=== PATIENT | female | born 2000 | race Hispanic/Latino ===

== ENCOUNTER 2020-12-17 11:48 | Outpatient (CLI) | payer BC | END 2020-12-17 11:49 | disposition home or self-care (01) | LOC: BICULT 11:48 | PROVIDERS: ATTEND Family Medicine | DX: E01.0 Iodine-deficiency related diffuse (endemic) goiter (principal) | CPT/HCPCS: 76536 ==

== ENCOUNTER 2022-12-22 12:21 | Outpatient (CLI) | payer BC | END 2022-12-22 12:22 | disposition home or self-care (01) | LOC: ULT 12:21 | DX: E03.9 Hypothyroidism, unspecified (principal) | CPT/HCPCS: 76536 ==

== ENCOUNTER 2023-03-09 03:38 | Emergency (ER) | payer BC ==
[2023-03-09] MEDS ORDERED: Dexamethasone 10 MG/ML VIAL ONE (05:08)
[2023-03-09] MEDS ORDERED: Ketorolac Tromethamine 30 MG/ML VIAL ONE (05:08)
[2023-03-09] MEDS ORDERED: Metoclopramide HCl 10 MG/2 ML VIAL ONE (05:08)
== END 2023-03-09 06:15 | disposition home or self-care (01) ==
LOC: ERS 03:38
DX: G43.909 Migraine, unspecified, not intractable, without status migrainosus (principal); E03.9 Hypothyroidism, unspecified; Z79.899 Other long term (current) drug therapy
CPT/HCPCS: 96374; 96375; J1100; J1885; J2765

== ENCOUNTER 2023-06-05 02:32 | Emergency (ER) | payer BC ==
[2023-06-05] MEDS ORDERED: Ketorolac Tromethamine 30 MG/ML VIAL ONE (04:08)
[2023-06-05] MEDS ORDERED: HYDROcodone/Acetaminophen 5/325 mg Tablet ONE (04:08)
== END 2023-06-05 04:43 | disposition home or self-care (01) ==
LOC: ERS 02:32
DX: M25.572 Pain in left ankle and joints of left foot (principal)
CPT/HCPCS: 96372; J1885

== ENCOUNTER 2025-06-05 18:25 | Emergency (ER) | payer BC ==
[2025-06-05] MEDS ORDERED: Ketorolac Tromethamine 30 MG (1 mL) VIAL ONE (19:10)
[2025-06-05] MEDS ORDERED: diphenhydrAMINE 50 MG/ML VIAL ONE (19:11)
[2025-06-05] MEDS ORDERED: Metoclopramide HCl 10 MG (2 mL) VIAL ONE (19:11)
[2025-06-05 19:20] LABS: #Basophils 0.04 10x3/uL (0.0-0.2); #Eosinophils 0.05 10x3/uL (0.0-0.7); #Monocytes 0.44 10x3/uL (0.11-0.59); #Neutrophils 5.58 10x3/uL (1.40-6.50); %Basophils 0.5 % (0.0-1.0); %Eosinophils 0.6 % (0.0-10.0); %Lymphocytes 24.2 % (21.0-51.0); %Monocytes 5.4 % (0.0-10.0); %Neutrophils 68.9 % (42.0-75.0); Hematocrit 39.1 % (36.0-47.0); Hemoglobin 11.7 g/dL (12.0-16.0); Mean Corpuscular Hemoglobin 22.3 pg (27.0-31.0); Mean Corpuscular Volume 74.6 fL (78.0-98.0); Platelet Count 366 10x3/uL (130-400); Red Blood Cell (RBC) Count 5.24 mill/uL (4.20-5.40); White Blood Cell (WBC) Count 8.10 10x3/uL (4.8-10.8)
[2025-06-05 19:30] LABS: BHCG - Serum Negative (NEGATIVE); Pregs Control Background? CLEAR/WHITE (CLR/WHITE); Pregs Control Bar Appear? YES (CONTROL BAR)
[2025-06-05 19:36] LABS: ALT (SGPT) 27 U/L (Less than 34); AST (SGOT) 39 U/L (11-34); Albumin 4.4 g/dL (3.1-4.5); Alkaline Phosphatase 118 U/L (40-110); Anion Gap 11 mmol/L (10-20); BUN (Urea Nitrogen) 15 mg/dL (7.0-18.7); Bilirubin, Total 1.2 mg/dL (0.3-1.2); Calc. Creatinine Clearance 0 mL/min (70-130); Calcium 9.7 mg/dL (7.8-10.44); Carbon Dioxide 23 mmol/L (22-29); Chloride 107 mmol/L (98-107); Globulin 4.1 g/dL (2.4-3.5); Glucose 91 mg/dL (70-105); Potassium 3.9 mmol/L (3.5-5.1); Sodium 137 mmol/L (136-145)
[2025-06-05 19:39] LABS: Anisocytosis SLIGHT = 6-15 cells HPF (0-5); Macrocytosis SLIGHT = 6-15 cells HPF (0-5); Microcytosis SLIGHT = 6-15 cells HPF (0-5); Platelet Adequacy Comment Platelets Normal; Polychromasia SLIGHT = 2-3 cells HPF (0-2)
== END 2025-06-05 21:15 | disposition home or self-care (01) ==
LOC: ERS 18:25
DX: G43.919 Migraine, unspecified, intractable, without status migrainosus (principal)
CPT/HCPCS: 80053; 84703; 85025; 96374; 96375; J1200; J1885; J2765; J2919